=== PATIENT | male | born 1965 | race Caucasian/White ===

== ENCOUNTER → 2016-10-08 | Outpatient (CLI) | payer BC ==
[~2016-10-08] MED LIST: ABILIFY 15MG TA15 MG PO; COLCRYS0.6 MG PO; GLUCOPHAGE850 MG/TAB PO; NORVASC 5MG5 MG/TAB PO; PROZAC 20MG20 MG PO; ZYLOPRIM 300MG300 MG PO
== END ==
LOC: ZLAB.ENT 16:34
DX: Z02.89 Encounter for other administrative examinations (principal)

== ENCOUNTER 2017-03-23 11:13 | Day surgery (SDC) | payer BC ==
[~2017-03-23] VITALS: Ht 167.6 cm; Wt 46.0 kg
[2017-03-23] MEDS ORDERED: LOTENSIN 1010 MG/TAB PO (12:29)
[2017-03-23] MEDS ORDERED: PRAVACHOL10 MG PO (12:29)
[2017-03-23 12:32] VITALS: BP 136/92; PULSE 72; TEMP 97.5
[2017-03-23 13:25] VITALS: BP 100/68; PULSE 74; TEMP 97.4
[2017-03-23 13:40] VITALS: BP 101/73; PULSE 61
[2017-03-23 13:55] VITALS: BP 111/75; PULSE 64
[2017-03-23 15:48] VITALS: BP 108/73; PULSE 70
== END 2017-03-23 14:45 | disposition home or self-care (01) ==
LOC: SDCO 11:13
DX: Z12.11 Encounter for screening for malignant neoplasm of colon (principal); K64.0 First degree hemorrhoids; E11.9 Type 2 diabetes mellitus without complications; I10 Essential (primary) hypertension; E78.00 Pure hypercholesterolemia, unspecified
CPT/HCPCS: OP; J2250; J3010; J7030

== ENCOUNTER → 2020-02-03 | Outpatient (CLI) | payer BC ==
[~2020-02-03] MED LIST changes: +LOTENSIN 1010 MG/TAB PO; +PRAVACHOL10 MG PO
== END ==
LOC: ZCOL.LAB 21:53
DX: Z20.828 Contact with and (suspected) exposure to other viral communicable diseases (principal)